=== PATIENT | female | born 1995 | race African-American/Black ===

== ENCOUNTER 2018-12-12 14:25 | Observation (INO) | payer MEDICAID ==
[~2018-12-12] VITALS: Ht 160 cm; Wt 65.3 kg
[2018-12-12] MEDS ORDERED: LACTATED RINGERS 1,000 ML IV SCH (21:30)
[2018-12-13 01:27] LABS: BASOPHILS % 0.5 % (0.0-2.0); EOSINOPHILS % 0.4 % (0.0-5.0); HEMATOCRIT. 24.7 % (36.0-48.0); LYMPHOCYTES % 15.9 % (20.0-50.0); MEAN CORPUSCULAR HEMOGLOBIN 23.9 pg (28.0-32.0); MEAN CORPUSCULAR VOLUME 73.9 fL (81.0-99.0); MEAN PLATELET VOLUME 8.5 fl (7.4-10.4); MONOCYTES % 5.3 % (2.0-8.0); NEUTROPHILS % 77.9 % (40.0-76.0); PLATELET 269 x1000/uL (130-400); RED BLOOD CELL COUNT 3.34 mill/uL (4.2-5.4)
[2018-12-13 01:29] LABS: CLARITY URINE CLEAR (CLEAR); COLOR URINE YELLOW (YELLOW); KETONES URINE 3+ (NEGATIVE); LEUKOCYTE ESTERASE URINE NEGATIVE (NEGATIVE); NITRITE URINE NEGATIVE (NEGATIVE); OCCULT BLOOD URINE NEGATIVE (NEGATIVE); PH URINE 5.5 (4.5-8.0); PROTEIN URINE NEGATIVE (NEGATIVE); SPECIFIC GRAVITY URINE 1.016 (1.005-1.030); UROBILINOGEN URINE 0.2 E.U./dL (0.2-1.0)
[2018-12-13 01:37] LABS: PARTIAL THROMBOPLASTIN TIME 26.3 sec (23.4-31.0); PROTHROMBIN TIME 10.5 sec (9.6-11.0)
[2018-12-13 01:42] LABS: *AMPHETAMINES SCREEN URINE NEGATIVE (NEGATIVE); *BARBITURATES SCREEN URINE NEGATIVE (NEGATIVE); *BENZODIAZEPINES SCREEN URINE NEGATIVE (NEGATIVE); *COCAINE SCREEN URINE NEGATIVE (NEGATIVE)
[2018-12-13 01:43] LABS: CANNABINOID URINE SCREEN NEGATIVE (NEGATIVE); METHADONE URINE SCREEN NEGATIVE (NEGATIVE); OPIATES URINE SCREEN NEGATIVE (NEGATIVE); PHENCYCLIDINE URINE SCREEN NEGATIVE (NEGATIVE)
[2018-12-13 02:04] LABS: HEPATITIS B SURFACE ANTIGEN NEGATIVE
== END 2018-12-13 10:30 | disposition home or self-care (01) ==
LOC: 8 EST LDRP 14:25
PROVIDERS: ADMIT Specialist; ATTEND Specialist
DX: O32.1XX0 Maternal care for breech presentation, not applicable or unspecified (principal); Z3A.36 36 weeks gestation of pregnancy
CPT/HCPCS: 36415; 76815; 76818; 80305; 81003; 85025; 85610; 85730; 86592; 86703; 86762; 86850; 86900; 86901; 87340; G0378; 96360; 96361

== ENCOUNTER 2018-12-15 05:47 | Observation (INO) | payer MEDICAID ==
[~2018-12-15] VITALS: Ht 157.5 cm; Wt 66.2 kg
[2018-12-15] MEDS ORDERED: DEXT 5%/LACTATED RINGERS 1,000 ML IV SCH ×2 (06:55→07:35)
[2018-12-15] MEDS ORDERED: CITRIC ACID/SODIUM CITRATE SOLN 30ML UDC PO SCH (07:00)
[2018-12-15] MEDS ORDERED: LACTATED RINGERS 1,000 ML IV SCH ×2 (07:22→07:45)
[2018-12-15] MEDS ORDERED: DEXT 5%/LR + PITOCIN 20UNITS/L 1,000 ML IV SCH (07:22)
[2018-12-15] MEDS ORDERED: MORPHINE SULFATE/PF 1MG/ML 10ML AMP ONE (07:44)
[2018-12-15] MEDS ORDERED: GLYCOPYRROLATE 0.2 MG/ML 2ML VIAL ONE (07:44)
[2018-12-15] MEDS ORDERED: EPHEDRINE SULFATE 50MG/ML VIAL ONE (07:44)
[2018-12-15] MEDS ORDERED: PHENYLEPHRINE HCL 10 MG/ML 1ML (IV VIAL) IV ONE (07:44)
[2018-12-15] MEDS ORDERED: ONDANSETRON HCL 4MG/2ML INJ ONE (07:44)
[2018-12-15] MEDS ORDERED: FENTANYL CITRATE/PF 50MCG/ML 2ML VIAL ONE (07:44)
[2018-12-15] MEDS ORDERED: OXYTOCIN 10 UNITS/ML 1ML ONE (07:44)
[2018-12-15] MEDS ORDERED: METOCLOPRAMIDE HCL 10MG/2ML VIAL ONE (07:44)
[2018-12-15] MEDS ORDERED: CEFAZOLIN SODIUM 1000MG/VIAL ONE (07:45)
[2018-12-15] MEDS ORDERED: SODIUM CHLORIDE 0.9% 10ML VIAL ONE (07:46)
[2018-12-15 08:25] LABS: BASOPHILS % 0.8 % (0.0-2.0); EOSINOPHILS % 0.9 % (0.0-5.0); HEMATOCRIT. 23.7 % (36.0-48.0); HEMOGLOBIN. 7.8 g/dL (12.0-16.0); LYMPHOCYTES % 21.4 % (20.0-50.0); MEAN CORPUSCULAR HEMOGLOBIN 24.2 pg (28.0-32.0); MEAN CORPUSCULAR VOLUME 73.6 fL (81.0-99.0); MEAN PLATELET VOLUME 8.2 fl (7.4-10.4); MONOCYTES % 5.4 % (2.0-8.0); NEUTROPHILS % 71.5 % (40.0-76.0); PLATELET 275 x1000/uL (130-400); RED BLOOD CELL COUNT 3.21 mill/uL (4.2-5.4)
[2018-12-15 08:35] LABS: PARTIAL THROMBOPLASTIN TIME 25.7 sec (23.4-31.0); PROTHROMBIN TIME 10.3 sec (9.6-11.0)
== END 2018-12-15 08:15 | disposition home or self-care (01) ==
LOC: 8 EST LDRP 05:47 → INTOOBSV 05:47 → OBSVTOIN 05:47
PROVIDERS: ADMIT Specialist; ATTEND Specialist
DX: O32.1XX0 Maternal care for breech presentation, not applicable or unspecified (principal); Z3A.38 38 weeks gestation of pregnancy
CPT/HCPCS: 36415; 59025; 76815; 85025; 85610; 85730; 86592; 86703; 86762; 86850; 86900; 86901; G0378; J0690; J2274; J2370; J2405; J3010; J3490; J7120; J2765; J7121